=== PATIENT | female | born 1950 | race Caucasian/White ===

== ENCOUNTER 2019-03-12 08:42 | Inpatient (IN) | payer MEDICARE, OTHER ==
[~2019-03-12 08:42] MED LIST: Albuterol 0.083% 2.5 MG/3 ML Neb Soln NEB PRN; Lactated Ringers 1,000 ML IV SCH; Lidocaine 1%/Sod Bicarbonate in NS 8.4% 1 ML Syringe IDERM PRN; Sodium Chloride 0.9% 10 ML Syringe FLUSH PRN
[2019-03-12] MEDS ORDERED: Midazolam 1 MG/ML 2 ML SDV ONE ×4 (09:26→14:24)
[2019-03-12] MEDS ORDERED: Ondansetron 4 MG/2 ML SDV ONE (09:26)
[2019-03-12] MEDS ORDERED: Propofol 200 MG/20 ML SDV ONE (09:26)
[2019-03-12] MEDS ORDERED: fentaNYL 100 MCG/2 ML SDV ONE (09:26)
[2019-03-12] MEDS ORDERED: Morphine PF 1 MG/ML Amp ONE (09:27)
[2019-03-12] MEDS ORDERED: Phenylephrine 1% 10 MG/ML SDV ONE (09:27)
[2019-03-12] MEDS ORDERED: ceFAZolin 1 GM Vial ONE ×2 (09:28)
[2019-03-12] MEDS ORDERED: Scopolamine 1.5 MG Transdermal Patch TOP SCH (09:38)
--- NOTE | 2019-03-12 09:46 | PCM.PREANE ---
Preanesthetic Assessment - Anesthesia/Transfusion/Family Hx Anesthesia History: Prior Anesthesia Reaction Type of Anesthesia Reaction: Excessive Nausea/Vomiting Family History of Anesthesia Reaction: No Transfusion History: No Prior Transfusion(s) Intubation History: Unknown - Review of Systems General: No Symptoms Pulmonary: Shortness of Breath, Wheezing Cardiovascular: Palpitations, Lightheadedness Neurological: No Symptoms Other: Reports: Thyroid Problems - Physical Assessment NPO Status Date: 03/11/19 NPO Status Time: 22:30 O2 Sat by Pulse Oximetry: 98 Respiratory Rate: 16 Vital Signs: Last Vital Signs Temp 37.0 C 03/12/19 09:00 Pulse 75 03/12/19 09:00 Resp 16 03/12/19 09:00 BP 148/64 H 03/12/19 09:00 Pulse Ox 98 03/12/19 09:00 Height: 1.52 m Weight: 91.4 kg ASA Class: 3 Mental Status: Alert & Oriented x3 Airway Class: Mallampati = 2 Dentition: Reports: Normal Dentition, Walker(s) ROM/Head Extension: Full Lungs: Clear to Auscultation, Normal Respiratory Effort Cardiovascular: Regular Rate, Regular Rhythm, Murmurs - Lab Values: Laboratory Last Values POC Glucose 105 mg/dL (80-115) 03/12/19 09:19 MRSA (PCR) Negative 02/28/19 13:52 - Allergies Allergies/Adverse Reactions: Allergies Allergy/AdvReac Type Severity Reaction Status Date / Time ciprofloxacin [From Cipro] Allergy Rash Verified 03/10/19 10:32 ciprofloxacin HCl Allergy Rash Verified 03/10/19 10:32 [From Cipro] Iodinated Contrast- Oral and Allergy Hives Verified 03/10/19 10:32 IV Dye triamterene Allergy Hives Verified 03/10/19 10:33 codeine AdvReac Vomiting Verified 03/12/19 07:07 metronidazole [From Flagyl] AdvReac Other Verified 03/12/19 07:07 - Blood Blood Available: Yes Product(s) Available: PRBC - Anesthesia Plan Pre-Op Medication Ordered: Beta Kristi Beta Kristi: Carteolol - Acknowledgements Anesthesia Type Planned: Spinal Pt an Appropriate Candidate for the Planned Anesthesia: Yes Alternatives and Risks of Anesthesia Discussed w Pt/Guardian: Yes Pt/Guardian Understands and Agrees with Anesthesia Plan: Yes PreAnesthesia Questionnaire HEENT History: Reports: Impaired Vision Cardiovascular History: Reports: High Cholesterol, Hypertension Respiratory History: Reports: Asthma, Sleep Apnea, Other (See Below) Other Respiratory History: uses cpap Gastrointestinal History: Reports: Colon Polyp, Diverticulosis, Gastritis, GERD , Other (See Below) Other Gastrointestinal History: umbilical hernai, hiatal hernia Genitourinary History: Reports: Other (See Below) Other Genitourinary History: renal cell cancer, renal insufficiency, nephrectomy , kidney/ureter disorder [employer] History: Reports: None Neurological History: Reports: Neuropathy, Peripheral, Other (See Below) Other Neuro History: disc disorder, back surgery Psychiatric History: Reports: Depression Endocrine/Metabolic History: Reports: Vitamin D Deficiency Other Endocrine/Metabolic History: thyroid nodule Hematologic History: Reports: None Immunologic History: Reports: None Oncologic (Cancer) History: Reports: None Other Oncologic History: LEFT KIDNEY Dermatologic History: Reports: None - Past Surgical History Head Surgeries/Procedures: Reports: None HEENT Surgical History: Reports: None Respiratory Surgical History: Reports: None GI Surgical History: Reports: None Female Surgical History: Reports: None Male Surgical History: Reports: None Neurological Surgical History: Reports: None Musculoskeletal Surgical History: Reports: Arthroscopic Knee Other Musculoskeletal Surgeries/Procedures:: HERIATED DISK; BACK SURGERY Dermatological Surgical History: Reports: None - SUBSTANCE USE Smoking Status *Q: Never Smoker Second Hand Smoke Exposure: No Recreational Drug Use History: No - HOME MEDS Home Medications: Home Meds Albuterol [Ventolin HFA] 2 puff INH Q4H PRN 03/10/19 [History] Aspirin [Halfprin] 81 mg PO DAILY 03/10/19 [History] Aspirin/Caffeine [Anacin 400-32 mg Tablet] 1 tab PO Q8H PRN 03/10/19 [History] Diltiazem HCl [Cardizem Cd] 240 mg PO DAILY 03/10/19 [History] Lisinopril 5 mg PO DAILY 03/10/19 [History] Melatonin 10 mg PO BEDTIME PRN 03/10/19 [History] [place]-3/DHA/Epa/Fish Oil [[place] 3 500 Softgel] 1,000 mg PO DAILY 03/10/19 [ History] Rosuvastatin Calcium 10 mg PO DAILY 03/10/19 [History] Trolamine Salicylate/Aloe Vera [Aspercreme 10% Cream] 1 dose TOP TID 03/10/19 [ History] Cholecalciferol (Vitamin D3) [Vitamin D3] 1,000 unit PO DAILY 03/12/19 [History] - CURRENT (IN HOUSE) MEDS Current Meds: Current Medications Acetaminophen (Tylenol) 975 mg PO NOW [facility] Stop: 03/12/19 13:00 Last Admin: 03/12/19 09:24 Dose: 975 mg Albuterol (Proventil Neb Soln) 2.5 mg NEB ONETIME PRN PRN Reason: asthma Stop: 03/12/19 18:00 Bisacodyl (Dulcolax) 5 mg PO DAILY PRN PRN Reason: Constipation Morphine Sulfate 8 mg/Epinephrine HCl 0.3 mg/Cefuroxime Sodium 750 mg/Sodium Chloride 28.9 ml 0 mg .XX ONETIME ONE Stop: 03/12/19 11:01 Cyclobenzaprine HCl (Flexeril) 10 mg PO TID PRN PRN Reason: Spasms Docusate Sodium (Colace) 100 mg PO BID [facility] Famotidine (Pepcid) 20 mg PO Q12H [facility] Lactated Ringer's (Ringers, Lactated) 1,000 mls @ 125 mls/hr IV ASDIRECTED [facility] Stop: 03/12/19 23:00 Cefazolin Sodium/Dextrose 2 gm (/ Premix) 50 mls @ 100 mls/hr IV Q8H [facility] Stop: 03/12/19 23:44 Lidocaine/Sodium Bicarbonate (Buffered Lidocaine 1% In Ns 8.4%) 0.25 ml IDERM ONETIME PRN PRN Reason: Prior to IV Start Stop: 03/12/19 18:00 Magnesium Hydroxide (Milk Of Magnesia) 30 ml PO BID PRN PRN Reason: Constipation Morphine Sulfate (Morphine) 2 mg IVPUSH Q2H PRN PRN Reason: Breakthrough Pain Naloxone HCl (Narcan) 0.1 mg IVPUSH Q5M PRN PRN Reason: Oversedation Ondansetron HCl (Zofran) 4 mg IVPUSH Q6H PRN PRN Reason: Nausea/Vomiting Oxycodone HCl (Oxycontin) 10 mg PO ONETIME [facility] Stop: 03/12/19 13:00 Last Admin: 03/12/19 09:23 Dose: 10 mg Oxycodone/Acetaminophen (Percocet 325-5 Mg) 1 - 2 tab PO Q4H PRN PRN Reason: Pain Pregabalin (Lyrica) 50 mg PO ONETIME [facility] Stop: 03/12/19 13:00 Last Admin: 03/12/19 09:23 Dose: 50 mg Rivaroxaban (Xarelto) 10 mg PO DAILY [facility] Scopolamine (Transderm-Scop) 1.5 mg TOP ONETIME [facility] Senna (Senna) 8.6 mg PO BID PRN PRN Reason: Constipation Sodium Chloride (Saline Flush) 10 ml FLUSH ASDIRECTED PRN PRN Reason: Keep Vein Open Stop: 03/12/19 18:00 Discontinued Medications Cefazolin Sodium (Ancef) Confirm Administered Dose 1 gm .ROUTE .STK-MED ONE Stop: 03/12/19 09:29 Cefazolin Sodium (Ancef) Confirm Administered Dose 1 gm .ROUTE .STK-MED ONE Stop: 03/12/19 09:29 Fentanyl (Sublimaze) Confirm Administered Dose 100 mcg .ROUTE .STK-MED ONE Stop: 03/12/19 09:27 Midazolam HCl (Versed 1 Mg/Ml) Confirm Administered Dose 2 mg .ROUTE .STK-MED ONE Stop: 03/12/19 09:27 Morphine Sulfate (Duramorph Pf) Confirm Administered Dose 1 mg .ROUTE .STK-MED ONE Stop: 03/12/19 09:28 Ondansetron HCl (Zofran) Confirm Administered Dose 4 mg .ROUTE .STK-MED ONE Stop: 03/12/19 09:27 Phenylephrine HCl (Price-Synephrine) Confirm Administered Dose 10 mg .ROUTE .STK- MED ONE Stop: 03/12/19 09:28 Propofol (Diprivan 20 Ml) Confirm Administered Dose 200 mg .ROUTE .STK-MED ONE Stop: 03/12/19 09:27
[2019-03-12] MEDS ORDERED: oxyCODONE ER 10 MG TAB.ER PO SCH (10:00)
[2019-03-12] MEDS ORDERED: Pregabalin 25 MG Cap PO SCH (10:00)
[2019-03-12] MEDS ORDERED: Acetaminophen 325 MG Tab PO SCH (10:00)
[2019-03-12] MEDS ORDERED: Ondansetron 4 MG/2 ML SDV IVPUSH PRN (11:00)
[2019-03-12] MEDS ORDERED: Bisacodyl 5 MG Tab PO PRN (11:00)
[2019-03-12] MEDS ORDERED: Morphine 2 MG/ML Syringe IVPUSH PRN (11:00)
[2019-03-12] MEDS ORDERED: Naloxone 0.4 MG/ML SDV IVPUSH PRN (11:00)
[2019-03-12] MEDS ORDERED: Magnesium Hydroxide 400 MG/5 ML Susp 30 ML Cup PO PRN (11:00)
[2019-03-12] MEDS ORDERED: Sennosides 8.6 MG Tab PO PRN (11:00)
[2019-03-12] MEDS ORDERED: Iodine/Sodium Iodide 2% Tincture 30 ML Bottle ONE (11:30)
[2019-03-12] MEDS ORDERED: ePHEDrine/Normal Saline 25 MG/5 ML Syringe ONE (13:09)
[2019-03-12] MEDS: ceFAZolin 1 GM Vial ONE ×3 (13:31→13:59)
[2019-03-12] MEDS: Vancomycin 1 GM SDV ONE ×3 (13:32→14:05)
[2019-03-12] MEDS: Bupivacaine 0.25% 30 ML SDV ONE ×3 (13:32→14:03)
[2019-03-12] MEDS: Morphine 8 MG, EPINEPHrine 0.3 MG, Cefuroxime 750 MG, Sodium Chloride 0.9% 28.9 ML ONE ×16 (13:34→17:19)
[2019-03-12] MEDS ORDERED: Lactated Ringers 1,000 ML ONE (14:03)
--- NOTE | 2019-03-12 14:55 | PCM.POSTAN ---
POST ANESTHESIA ASSESSMENT - MENTAL STATUS Mental Status: Alert - RESPIRATORY Respiratory Status: Respiratory Rate WNL, Airway Patent, O2 Saturation Stable - CARDIOVASCULAR CV Status: Pulse Rate WNL, Blood Pressure Stable - GASTROINTESTINAL GI Status: No Symptoms - POST OP HYDRATION Hydration Status: Adequate & Stable
--- NOTE | 2019-03-12 15:16 | CR ---
Pelvis and right hip: AP view of the pelvis was obtained as well as lateral view of the right hip. Comparison: No prior pelvis or hip exam is available. Recently placed right hip prosthesis is seen. Components are aligned. Underlying bony structures are intact. Osteopenia is seen. No additional abnormality is noted other than mild degenerative change within the left hip. Impression: 1. Recently placed right hip prosthesis. Other incidental findings. Diagnostic code #2
[2019-03-12] MEDS ORDERED: Albuterol 6.7 GM Inhaler INH PRN (15:40)
--- NOTE | 2019-03-12 15:47 | PCM.CONS ---
H&P History of Present Illness - General Date of Service: 03/12/19 Admit Problem/Dx: Admission Diagnosis/Problem Admission Diagnosis/Problem Osteoarthritis of hip - History of Present Illness Initial Comments - Free Text/Narative: 68 yo WF with dyslipidemia, DM, HTN underwent right hip surgery. Hospitalist service was asked to assist in medical management. Right Hip Pain Score (Numeric/FACES): 2 - Related Data Allergies/Adverse Reactions: Allergies Allergy/AdvReac Type Severity Reaction Status Date / Time ciprofloxacin [From Cipro] Allergy Rash Verified 03/12/19 15:41 ciprofloxacin HCl Allergy Rash Verified 03/12/19 15:41 [From Cipro] Iodinated Contrast- Oral and Allergy Hives Verified 03/12/19 15:41 IV Dye triamterene Allergy Hives Verified 03/12/19 15:41 codeine AdvReac Vomiting Verified 03/12/19 15:41 metronidazole [From Flagyl] AdvReac Other Verified 03/12/19 15:41 Home Medications: Home Meds Albuterol [Ventolin HFA] 2 puff INH Q4H PRN 03/10/19 [History] Aspirin [Halfprin] 81 mg PO DAILY 03/10/19 [History] Aspirin/Caffeine [Anacin 400-32 mg Tablet] 1 tab PO Q8H PRN 03/10/19 [History] Diltiazem HCl [Cardizem Cd] 240 mg PO DAILY 03/10/19 [History] Lisinopril 5 mg PO DAILY 03/10/19 [History] Melatonin 10 mg PO BEDTIME PRN 03/10/19 [History] [place]-3/DHA/Epa/Fish Oil [[place] 3 500 Softgel] 1,000 mg PO DAILY 03/10/19 [ History] Rosuvastatin Calcium 10 mg PO DAILY 03/10/19 [History] Trolamine Salicylate/Aloe Vera [Aspercreme 10% Cream] 1 dose TOP TID 03/10/19 [ History] Cholecalciferol (Vitamin D3) [Vitamin D3] 1,000 unit PO DAILY 03/12/19 [History] Past Medical History HEENT History: Reports: Impaired Vision Cardiovascular History: Reports: High Cholesterol, Hypertension Respiratory History: Reports: Asthma, Sleep Apnea, Other (See Below) Other Respiratory History: uses cpap Gastrointestinal History: Reports: Colon Polyp, Diverticulosis, Gastritis, GERD , Other (See Below) Other Gastrointestinal History: umbilical hernai, hiatal hernia Genitourinary History: Reports: Other (See Below) Other Genitourinary History: renal cell cancer, renal insufficiency, nephrectomy , kidney/ureter disorder [employer] History: Reports: None Neurological History: Reports: Neuropathy, Peripheral, Other (See Below) Other Neuro History: disc disorder, back surgery Psychiatric History: Reports: Depression Endocrine/Metabolic History: Reports: Vitamin D Deficiency Other Endocrine/Metabolic History: thyroid nodule Hematologic History: Reports: None Immunologic History: Reports: None Oncologic (Cancer) History: Reports: None Other Oncologic History: LEFT KIDNEY Dermatologic History: Reports: None - Past Surgical History Head Surgeries/Procedures: Reports: None HEENT Surgical History: Reports: None Respiratory Surgical History: Reports: None GI Surgical History: Reports: None Female Surgical History: Reports: None Male Surgical History: Reports: None Neurological Surgical History: Reports: None Musculoskeletal Surgical History: Reports: Arthroscopic Knee Other Musculoskeletal Surgeries/Procedures:: HERIATED DISK; BACK SURGERY Dermatological Surgical History: Reports: None Social & Family History - Tobacco Use Smoking Status *Q: Never Smoker Second Hand Smoke Exposure: No - Caffeine Use Caffeine Use: Reports: Coffee Caffeine Use Comment: de caff coffee - Recreational Drug Use Recreational Drug Use: No H&P Review of Systems - Review of Systems: Review Of Systems: See Below General: Denies: Fever, Chills HEENT: Denies: Hearing Changes, Vertigo, Visual Changes Pulmonary: Denies: Shortness of Breath, Wheezing Cardiovascular: Denies: Chest Pain, Palpitations, Syncope Gastrointestinal: Denies: Abdominal Pain, Nausea, Vomiting Genitourinary: Denies: Dysuria Musculoskeletal: Reports: Leg Pain Skin: Denies: Cyanosis, Jaundice Psychiatric: Denies: Depression, Suicidal Ideation Neurological: Denies: Seizure, Syncope Hematologic/Lymphatic: Denies: Easy Bleeding, Easy Bruising Exam - Exam Exam: See Below - Vital Signs Vital Signs: Last Vital Signs Temp 96.8 F 03/12/19 15:15 Pulse 75 03/12/19 09:00 Resp 16 03/12/19 15:20 BP 111/46 L 03/12/19 15:20 Pulse Ox 94 L 03/12/19 15:20 Weight: 201 lb 8.04 oz - Exam Quality Assessment: Supplemental Oxygen General: Oriented, Lethargic HEENT: Conjunctiva Clear, Pupils Equal Neck: Supple, Trachea Midline Lungs: Clear to Auscultation, Normal Respiratory Effort Cardiovascular: Regular Rate, Regular Rhythm, Normal S1, Normal S2 GI/Abdominal Exam: Soft, Non-Tender, No Organomegaly, No Distention Extremities: Non-Tender, No Pedal Edema Peripheral Pulses: 2+: Posterior Tibial (L), Posterior Tibial (R) - Patient Data Lab Results Last 24 hrs: Laboratory Results - last 24 hr 03/12/19 03/12/19 Range/Units 09:19 09:20 POC Glucose 105 (80-115) mg/dL Blood Type A POSITIVE Gel Antibody Screen Negative Consult PN Assessment/Plan Procedures: Procedures ASSAY OF PROTEIN URINE (11/03/16) ASSAY OF URINE CREATININE (11/03/16) COLONOSCOPY AND BIOPSY (06/02/15) COMPLETE CBC W/AUTO DIFF WBC (08/04/17) CULTURE SCREEN ONLY (06/25/17) EGD BIOPSY SINGLE/MULTIPLE (06/02/15) GLYCOSYLATED HEMOGLOBIN TEST (08/04/17) METABOLIC PANEL TOTAL CA (05/13/17) POLYSOM 6/>YRS CPAP 4/> PARM (05/19/17) RENAL FUNCTION PANEL (08/04/17) ROUTINE VENIPUNCTURE (08/04/17) TISSUE EXAM BY PATHOLOGIST (06/02/15) URINALYSIS AUTO W/SCOPE (05/05/17) URINE CULTURE/COLONY COUNT (05/13/17) (1) Diabetes mellitus SNOMED Code(s): 77092453 Code(s): E11.9 - TYPE 2 DIABETES MELLITUS WITHOUT COMPLICATIONS Current Visit: Yes Qualifiers: Diabetes mellitus type: type 2 Diabetes mellitus residential insulin use: without residential use Diabetes mellitus complication status: without complication Qualified Code(s): E11.9 - Type 2 diabetes mellitus without complications (2) Essential hypertension SNOMED Code(s): 86833415 Code(s): I10 - ESSENTIAL (PRIMARY) HYPERTENSION Priority: High Current Visit: Yes (3) Dyslipidemia SNOMED Code(s): 721199184 Code(s): E78.5 - HYPERLIPIDEMIA, UNSPECIFIED Current Visit: Yes Problem List Initiated/Reviewed/Updated: Yes My Orders Last 24 Hours: My Active Orders 03/12/19 15:40 Albuterol 2 puff INH Q4H PRN 03/13/19 05:00 MAGNESIUM [CHEM] AM PHOSPHORUS [CHEM] AM 03/13/19 09:00 Lisinopril [Prinivil] 5 mg PO DAILY Plan: 1. pain control, will correlate with ortho team. 2. DM - HbA1C, start SSI. 3. continue ACEi, CCB. 4. continue home rosuvastatin. 5. DVTP
[2019-03-12] MEDS: ceFAZolin 2 GM in Premix Bag 1 BAG IV SCH (16:54)
[2019-03-12] MEDS: Famotidine 20 MG Tab PO SCH (21:09)
[2019-03-12] MEDS: Acetaminophen/oxyCODONE 325-5 MG Tab PO PRN (21:09)
[2019-03-12] MEDS: Docusate Sodium 100 MG Cap PO SCH (21:09)
[2019-03-13] MEDS: ceFAZolin 2 GM in Premix Bag 1 BAG IV SCH ×2 (01:55→08:34)
[2019-03-13] MEDS: Acetaminophen/oxyCODONE 325-5 MG Tab PO PRN ×3 (01:55→10:31)
[2019-03-13] MEDS: Cyclobenzaprine 10 MG Tab PO PRN ×2 (05:53→13:16)
--- NOTE | 2019-03-13 07:47 | PCM.SURGPN ---
- General Info Date of Service: 03/13/19 POD#: 1 Functional Status: Reports: Pain Controlled, Tolerating Diet, Incentive Spirometry, Other (The pt states she was able to rest comfortably this morning and pain is controlled.) - Patient Data Vitals - Most Recent: Last Vital Signs Temp 98.1 F 03/13/19 06:01 Pulse 58 L 03/13/19 06:01 Resp 18 03/13/19 06:01 BP 98/58 L 03/13/19 06:01 Pulse Ox 98 03/13/19 06:01 Weight - Most Recent: 206 lb 4 oz I&O - Last 24 Hours: Intake & Output 03/12/19 03/13/19 03/13/19 22:59 06:59 14:59 Intake Total 980 850 Output Total 450 Balance 980 400 Lab Results Last 24 Hrs: Laboratory Results - last 24 hr 03/12/19 03/12/19 03/13/19 Range/Units 09:19 09:20 05:40 WBC 8.47 (3.98-10.04) K/mm3 RBC 4.12 (3.98-5.22) M/mm3 Hgb 11.9 D (11.2-15.7) gm/L Hct 37.6 (34.1-44.9) % MCV 91.3 (79.4-94.8) fl MCH 28.9 (25.6-32.2) pg MCHC 31.6 L (32.2-35.5) g/dl RDW Std Deviation 45.2 (36.4-46.3) fL Plt Count 188 (182-369) K/mm3 MPV 10.3 (9.4-12.3) fl Sodium (136-145) mEq/L Potassium (3.5-5.1) mEq/L Chloride (98-107) mEq/L Carbon Dioxide (21-32) mEq/L Anion Gap (5-15) BUN (7-18) mg/dL Creatinine (0.55-1.02) mg/dL Est Cr Clr Drug Dosing mL/min Estimated GFR (MDRD) (>60) mL/min BUN/Creatinine Ratio (14-18) Glucose (80-115) mg/dL POC Glucose 105 (80-115) mg/dL Calcium (8.5-10.1) mg/dL Phosphorus (2.6-4.7) mg/dL Magnesium (1.8-2.4) mg/dl Total Bilirubin (0.2-1.0) mg/dL AST (15-37) U/L ALT (14-59) U/L Alkaline Phosphatase (46-116) U/L Total Protein (6.4-8.2) g/dl Albumin (3.4-5.0) g/dl Globulin gm/dL Albumin/Globulin Ratio (1-2) Blood Type A POSITIVE Gel Antibody Screen Negative 03/13/19 03/13/19 Range/Units 05:40 05:40 WBC (3.98-10.04) K/mm3 RBC (3.98-5.22) M/mm3 Hgb (11.2-15.7) gm/L Hct (34.1-44.9) % MCV (79.4-94.8) fl MCH (25.6-32.2) pg MCHC (32.2-35.5) g/dl RDW Std Deviation (36.4-46.3) fL Plt Count (182-369) K/mm3 MPV (9.4-12.3) fl Sodium 138 (136-145) mEq/L Potassium 4.5 (3.5-5.1) mEq/L Chloride 105 (98-107) mEq/L Carbon Dioxide 27 (21-32) mEq/L Anion Gap 10.5 (5-15) BUN 18 (7-18) mg/dL Creatinine 1.0 (0.55-1.02) mg/dL Est Cr Clr Drug Dosing 37.60 mL/min Estimated GFR (MDRD) 55 (>60) mL/min BUN/Creatinine Ratio 18.0 (14-18) Glucose 111 (80-115) mg/dL POC Glucose (80-115) mg/dL Calcium 8.5 (8.5-10.1) mg/dL Phosphorus 4.4 (2.6-4.7) mg/dL Magnesium 1.8 (1.8-2.4) mg/dl Total Bilirubin 0.3 (0.2-1.0) mg/dL AST 70 H (15-37) U/L ALT 56 (14-59) U/L Alkaline Phosphatase 78 (46-116) U/L Total Protein 5.9 L (6.4-8.2) g/dl Albumin 2.7 L (3.4-5.0) g/dl Globulin 3.2 gm/dL Albumin/Globulin Ratio 0.8 L (1-2) Blood Type Gel Antibody Screen Med Orders - Current: Current Medications Albuterol (Proventil Hfa) 0 gm INH Q4H PRN PRN Reason: Shortness of Breath Bisacodyl (Dulcolax) 5 mg PO DAILY PRN PRN Reason: Constipation Cholecalciferol (Vitamin D3) 1,000 units PO DAILY [facility] Cyclobenzaprine HCl (Flexeril) 10 mg PO TID PRN PRN Reason: Spasms Last Admin: 03/13/19 05:53 Dose: 10 mg Docusate Sodium (Colace) 100 mg PO BID [facility] Last Admin: 03/12/19 21:09 Dose: 100 mg Famotidine (Pepcid) 20 mg PO Q12H [facility] Last Admin: 03/12/19 21:09 Dose: Not Given Cefazolin Sodium/Dextrose 2 gm (/ Premix) 50 mls @ 100 mls/hr IV Q8H [facility] Stop: 03/13/19 09:59 Last Admin: 03/13/19 01:55 Dose: 100 mls/hr Lisinopril (Prinivil) 5 mg PO DAILY [facility] Miscellaneous Information (Remove Patch) 0 ea TRDERM ONETIME ONE Stop: 03/15/19 10:01 Morphine Sulfate (Morphine) 2 mg IVPUSH Q2H PRN PRN Reason: Breakthrough Pain Naloxone HCl (Narcan) 0.1 mg IVPUSH Q5M PRN PRN Reason: Oversedation Ondansetron HCl (Zofran) 4 mg IVPUSH Q6H PRN PRN Reason: Nausea/Vomiting Oxycodone/Acetaminophen (Percocet 325-5 Mg) 1 - 2 tab PO Q4H PRN PRN Reason: Pain Last Admin: 03/13/19 05:51 Dose: 2 tab Rivaroxaban (Xarelto) 10 mg PO DAILY [facility] Senna (Senna) 8.6 mg PO BID PRN PRN Reason: Constipation Discontinued Medications Acetaminophen (Tylenol) 975 mg PO NOW [facility] Stop: 03/12/19 13:00 Last Admin: 03/12/19 09:24 Dose: 975 mg Albuterol (Proventil Neb Soln) 2.5 mg NEB ONETIME PRN PRN Reason: asthma Stop: 03/12/19 18:00 Bupivacaine HCl (Marcaine 0.25%) Confirm Administered Dose 30 ml .ROUTE .STK- MED ONE Stop: 03/12/19 11:31 Last Admin: 03/12/19 14:03 Dose: 30 ml Cefazolin Sodium (Ancef) Confirm Administered Dose 1 gm .ROUTE .STK-MED ONE Stop: 03/12/19 09:29 Cefazolin Sodium (Ancef) Confirm Administered Dose 1 gm .ROUTE .STK-MED ONE Stop: 03/12/19 09:29 Cefazolin Sodium (Ancef) Confirm Administered Dose 2 gm .ROUTE .STK-MED ONE Stop: 03/12/19 11:31 Last Admin: 03/12/19 13:59 Dose: 2 gm Morphine Sulfate 8 mg/Epinephrine HCl 0.3 mg/Cefuroxime Sodium 750 mg/Sodium Chloride 28.9 ml 0 mg .XX ONETIME ONE Stop: 03/12/19 11:01 Last Admin: 03/12/19 17:19 Dose: Not Given Ephedrine Sulfate (Ephedrine In Ns) Confirm Administered Dose 25 mg .ROUTE .STK- MED ONE Stop: 03/12/19 13:10 Fentanyl (Sublimaze) Confirm Administered Dose 100 mcg .ROUTE .STK-MED ONE Stop: 03/12/19 09:27 Lactated Ringer's (Ringers, Lactated) 1,000 mls @ 125 mls/hr IV ASDIRECTED [facility] Stop: 03/12/19 23:00 Last Admin: 03/12/19 09:19 Dose: 125 mls/hr Lactated Ringer's (Ringers, Lactated) Confirm Administered Dose 1,000 mls @ as directed .ROUTE .STK-MED ONE Stop: 03/12/19 14:04 Iodine (Iodine 2% Mild Tincture) Confirm Administered Dose 30 ml .ROUTE .STK- MED ONE Stop: 03/12/19 11:31 Lidocaine/Sodium Bicarbonate (Buffered Lidocaine 1% In Ns 8.4%) 0.25 ml IDERM ONETIME PRN PRN Reason: Prior to IV Start Stop: 03/12/19 18:00 Magnesium Hydroxide (Milk Of Magnesia) 30 ml PO BID PRN PRN Reason: Constipation Midazolam HCl (Versed 1 Mg/Ml) Confirm Administered Dose 2 mg .ROUTE .STK-MED ONE Stop: 03/12/19 09:27 Midazolam HCl (Versed 1 Mg/Ml) Confirm Administered Dose 2 mg .ROUTE .STK-MED ONE Stop: 03/12/19 11:22 Midazolam HCl (Versed 1 Mg/Ml) Confirm Administered Dose 2 mg .ROUTE .STK-MED ONE Stop: 03/12/19 12:59 Midazolam HCl (Versed 1 Mg/Ml) Confirm Administered Dose 2 mg .ROUTE .STK-MED ONE Stop: 03/12/19 14:25 Morphine Sulfate (Duramorph Pf) Confirm Administered Dose 1 mg .ROUTE .ST-MED ONE Stop: 03/12/19 09:28 Ondansetron HCl (Zofran) Confirm Administered Dose 4 mg .ROUTE .ST-MED ONE Stop: 03/12/19 09:27 Oxycodone HCl (Oxycontin) 10 mg PO ONETIME [facility] Stop: 03/12/19 13:00 Last Admin: 03/12/19 09:23 Dose: 10 mg Phenylephrine HCl (Price-Synephrine) Confirm Administered Dose 10 mg .ROUTE .ST- MED ONE Stop: 03/12/19 09:28 Pregabalin (Lyrica) 50 mg PO ONETIME [facility] Stop: 03/12/19 13:00 Last Admin: 03/12/19 09:23 Dose: 50 mg Propofol (Diprivan 20 Ml) Confirm Administered Dose 200 mg .ROUTE .ST-MED ONE Stop: 03/12/19 09:27 Scopolamine (Transderm-Scop) 1.5 mg TOP ONETIME [facility] Stop: 03/12/19 12:00 Last Admin: 03/12/19 09:50 Dose: 1.5 mg Sodium Chloride (Saline Flush) 10 ml FLUSH ASDIRECTED PRN PRN Reason: Keep Vein Open Stop: 03/12/19 18:00 Tranexamic Acid (Cyklokapron) Confirm Administered Dose 1,000 mg .ROUTE .STK- MED ONE Stop: 03/12/19 11:31 Last Admin: 03/12/19 14:04 Dose: 1,000 mg Vancomycin HCl (Vancomycin) Confirm Administered Dose 1 gm .ROUTE .STK-MED ONE Stop: 03/12/19 11:31 Last Admin: 03/12/19 14:05 Dose: 1 gm - Exam Wound/Incisions: Dressing Dry and Intact General: Alert, Cooperative, No Acute Distress Lungs: Normal Respiratory Effort Extremities: Other (Right thigh soft. NVS intact for BLE. Irene's negative for BLE.) - Problem List Review Problem List Initiated/Reviewed/Updated: Yes - My Orders Last 24 Hours: Active Orders 24 hr Category Date Time Status Patient Status [ADT] Routine ADT 03/12/19 07:15 Active Ambulate [RC] BID Care 03/12/19 07:15 Active Antiembolic Devices [RC] BID Care 03/12/19 07:16 Active Bradycardia-Neuroaxis [employer] [RC] ROUTINE Care 03/12/19 14:55 Active Hypertension-Neuroaxis [employer] [RC] ROUTINE Care 03/12/19 14:55 Active Hypotension-Neuroaxis [employer] [RC] ROUTINE Care 03/12/19 14:55 Active May Shower [RC] ASDIRECTED Care 03/12/19 07:15 Active Notify Provider Consults [RC] ASDIRECTED Care 03/12/19 07:18 Active Oxygen Therapy [RC] PRN Care 03/12/19 07:15 Active RT Incentive Spirometry [RC] Q1HWA Care 03/12/19 07:14 Active Ready for Discharge [RC] PER UNIT ROUTINE Care 03/13/19 07:41 Ordered Up to Chair [RC] BID Care 03/12/19 07:15 Active Vital Signs [RC] Q4HR Care 03/12/19 07:15 Active Consult to Physician [CONS] Routine Cons 03/12/19 07:15 Active OT Evaluation and Treatment [CONS] Routine Cons 03/12/19 07:14 Active PT Evaluation and Treatment [CONS] Routine Cons 03/12/19 07:14 Active Regular Diet [DIET] Diet 03/12/19 Dinner Active GLYCOSYLATED HEMOGLOBIN,HGBA1C [CHEM] AM Lab 03/13/19 05:40 Received Acetaminophen/oxyCODONE [Percocet 325-5 MG] Med 03/12/19 11:00 Active 1 - 2 tab PO Q4H PRN Albuterol [Proventil HFA] Med 03/12/19 15:40 Active 0 gm INH Q4H PRN Bisacodyl [Dulcolax] Med 03/12/19 11:00 Active 5 mg PO DAILY PRN Cholecalciferol (Vitamin D3) [Vitamin D3] Med 03/13/19 09:00 Active 1,000 units PO DAILY Cyclobenzaprine [Flexeril] Med 03/12/19 11:00 Active 10 mg PO TID PRN Docusate Sodium [Colace] Med 03/12/19 21:00 Active 100 mg PO BID Famotidine [Pepcid] Med 03/12/19 21:00 Active 20 mg PO Q12H Lisinopril [Prinivil] Med 03/13/19 09:00 Active 5 mg PO DAILY Morphine Med 03/12/19 11:00 Active 2 mg IVPUSH Q2H PRN Naloxone [Narcan] Med 03/12/19 11:00 Active 0.1 mg IVPUSH Q5M PRN Ondansetron [Zofran] Med 03/12/19 11:00 Active 4 mg IVPUSH Q6H PRN Remove Patch Med 03/15/19 10:00 Once 0 ea TRDERM ONETIME ONE Rivaroxaban [Xarelto] Med 03/13/19 09:00 Active 10 mg PO DAILY Sennosides [Senna] Med 03/12/19 11:00 Active 8.6 mg PO BID PRN ceFAZolin [Ancef] 2 gm Med 03/12/19 17:30 Active Premix Bag 1 bag IV Q8H Antiembolic Hose [OM.PC] Per Unit Routine Oth 03/12/19 07:17 Ordered Hip Precautions Posterior [OM.PC] Routine Oth 03/12/19 07:14 Ordered Ice Therapy [OM.PC] Per Unit Routine Oth 03/12/19 07:16 Ordered Pulse Oximetry Continuous Monitoring [OM.PC] Routine Oth 03/12/19 17:20 Active Sequential Compression Device [OM.PC] Per Unit Routine Oth 03/12/19 07:14 Ordered Resuscitation Status Routine Resus Stat 03/12/19 07:15 Ordered Medication Orders Albuterol (Proventil Hfa) 0 gm INH Q4H PRN PRN Reason: Shortness of Breath Bisacodyl (Dulcolax) 5 mg PO DAILY PRN PRN Reason: Constipation Cholecalciferol (Vitamin D3) 1,000 units PO DAILY [facility] Cyclobenzaprine HCl (Flexeril) 10 mg PO TID PRN PRN Reason: Spasms Last Admin: 03/13/19 05:53 Dose: 10 mg Docusate Sodium (Colace) 100 mg PO BID [facility] Last Admin: 03/12/19 21:09 Dose: 100 mg Famotidine (Pepcid) 20 mg PO Q12H [facility] Last Admin: 03/12/19 21:09 Dose: Not Given Cefazolin Sodium/Dextrose 2 gm (/ Premix) 50 mls @ 100 mls/hr IV Q8H [facility] Stop: 03/13/19 09:59 Last Admin: 03/13/19 01:55 Dose: 100 mls/hr Infusion: 03/12/19 17:24 Dose: 100 mls/hr Admin: 03/12/19 16:54 Dose: 100 mls/hr Lisinopril (Prinivil) 5 mg PO DAILY [facility] Miscellaneous Information (Remove Patch) 0 ea TRDERM ONETIME ONE Stop: 03/15/19 10:01 Morphine Sulfate (Morphine) 2 mg IVPUSH Q2H PRN PRN Reason: Breakthrough Pain Naloxone HCl (Narcan) 0.1 mg IVPUSH Q5M PRN PRN Reason: Oversedation Ondansetron HCl (Zofran) 4 mg IVPUSH Q6H PRN PRN Reason: Nausea/Vomiting Oxycodone/Acetaminophen (Percocet 325-5 Mg) 1 - 2 tab PO Q4H PRN PRN Reason: Pain Last Admin: 03/13/19 05:51 Dose: 2 tab Admin: 03/13/19 01:55 Dose: 2 tab Admin: 03/12/19 21:09 Dose: 2 tab Rivaroxaban (Xarelto) 10 mg PO DAILY [facility] Senna (Senna) 8.6 mg PO BID PRN PRN Reason: Constipation - Assessment Assessment (Free Text/Narrative):: POD#1 - right RENATE - Plan Plan (Free Text/Narrative):: 1. Will initiate Xarelto today for VTE prophylaxis. Hx gastritis, GERD and pt reports mother with hx VTE. 2. Hgb 11.9. GFR 55. 3. Discharge to home today if inpt therapy goals met and if cleared by Hospitalist service. 4. RENATE precautions. Outpatient therapy. 5. Hospitalist service input appreciated re: medical management. SSI initiated. The pt's case was discussed with Dr. Chen.
--- NOTE | 2019-03-13 08:17 | PCM48HPAN ---
Post Anesthesia Note - EVALUATION WITHIN 48HRS OF ANESTHETIC Vital Signs in Normal Range: Yes Patient Participated in Evaluation: Yes Respiratory Function Stable: Yes Airway Patent: Yes Cardiovascular Function Stable: Yes Hydration Status Stable: Yes Pain Control Satisfactory: Yes Nausea and Vomiting Control Satisfactory: Yes Mental Status Recovered: Yes Pulse Rate: 58 Resp Rate: 18 Temperature: 36.7 C Blood Pressure: 98/58 - COMMENTS/OBSERVATIONS Free Text/Narrative:: no anesthesia complications noted
[2019-03-13] MEDS: Famotidine 20 MG Tab PO SCH (08:30)
[2019-03-13] MEDS: Docusate Sodium 100 MG Cap PO SCH (08:31)
[2019-03-13] MEDS ORDERED: Cholecalciferol (Vitamin D3) 1,000 Unit Tab PO SCH (09:00)
[2019-03-13] MEDS ORDERED: Rivaroxaban 10 MG Tab PO SCH (09:00)
[2019-03-13] MEDS ORDERED: Lisinopril 5 MG Tab PO SCH (09:00)
[2019-03-13 09:31] LABS: HEMOGLOBIN A1C 5.9 % (4.50-6.20)
[2019-03-13 12:51] VITALS: BP 98/54
--- NOTE | 2019-03-14 08:41 | PCM.DCSUM1 ---
Discharge Summary - Hospital Course Brief History: Astrid is a 68 yo female who underwent right RENATE with Dr. Chen on 03-12-2019. The procedure was completed under spinal anesthesia with MAC. The pt tolerated the procedure well and was admitted to the Medical-Surgical Unit. The pt received Ancef jonathan-operatively. She participated in P.T. and O.T. and progressed well. She was allowed to WBAT and used a FWW for mobility. The pt's surgical wound was dressed with a Mepilex dressing and remained clean and dry. On POD#1, the pt was started on Xarelto 10mg PO daily for VTE prophylaxis. The pt used TEDs and SCDs also. On POD#1, the pt's hemoglobin was 11.9. Medical management was provided by the Hospitalist service and the pt 's hospital course was uneventful. On POD#1, the pt was deemed appropriate for discharge to home. - Discharge Data Discharge Date: 03/13/19 Discharge Disposition: Home, Self-Care 01 Condition: Good - Patient Summary/Data Consults: Consultations 03/12/19 07:14 OT Evaluation and Treatment [CONS] Routine PT Evaluation and Treatment [CONS] Routine 03/12/19 07:15 Consult to Physician [CONS] Routine - Patient Instructions Diet: Usual Diet as Tolerated Activity: Apply Ice, As Tolerated, Elevate Extremity, Full Weight Bearing Activity, Other: RENATE precautions Driving: Do Not Drive Showering/Bathing: May Shower Wound/Incision Care: Keep Operative Site/Wound Site Clean and Dry, Do NOT Change Dressing Notify Provider of: Fever, Increased Pain, Swelling and Redness, Drainage, Nausea and/or Vomiting Other/Special Instructions: Please get up and moving around EVERY HOUR while awake. Take a short walk in your home every hour while awake. This helps to prevent blood clots. Have help with mobility as needed. Please take the Xarelto blood thinner medication daily as directed. This also helps to prevent blood clots. Please wear the ERMA hose during the day and you may remove them at night. Please schedule for P.T. Complete the P.T. exercises and stretches that were instructed in the Hospital. Follow the total hip precautions that were instructed during your Hospital stay. Please use the pain medication as needed. The medication may cause drowsiness and/or constipation. You could use a stool softener like docusate sodium or Colace 100mg twice daily and/or a laxative like Miralax daily for constipation. Contact your primary care provider for further instructions if you are constipated. Discontinue use of the pain medication as soon as able. Please do not use other medications that may cause drowsiness (other pain medications, anxiety pills, sleeping pills, allergy medications that cause drowsiness) while using the pain medication. Please do not use alcohol while using the pain medication. Use the incentive spirometer often. Please place ice to the surgical site often. Place a towel between your skin and the blue pad. Please elevate the limb to decrease swelling. Keep the dressing in place until follow-up. Please notify the Clinic if the dressing is saturated or rolls. Increase protein intake in your diet as this helps with healing. If your blood sugars have been abnormal in the past, please closely monitor your blood sugars and notify your primary care provider of your values. Elevated blood sugars increase the risk of infection. Please call [phone] with questions or concerns. - Discharge Plan *PRESCRIPTION DRUG MONITORING PROGRAM REVIEWED*: No *COPY OF PRESCRIPTION DRUG MONITORING REPORT IN PATIENT CAROLYN: No Prescriptions/Med Rec: Acetaminophen/oxyCODONE [Percocet 325-5 MG] 1 - 2 tab PO Q6H PRN #60 tablet PRN Reason: Pain Cyclobenzaprine [Flexeril] 10 mg PO BID PRN #30 tablet PRN Reason: Spasms Rivaroxaban [Xarelto] 10 mg PO DAILY #35 tablet Home Medications: Home Meds Albuterol [Ventolin HFA] 2 puff INH Q4H PRN 03/10/19 [History] Diltiazem HCl [Cardizem Cd] 240 mg PO DAILY 03/10/19 [History] Lisinopril 5 mg PO DAILY 03/10/19 [History] Melatonin 10 mg PO BEDTIME PRN 03/10/19 [History] Rosuvastatin Calcium 10 mg PO DAILY 03/10/19 [History] Trolamine Salicylate/Aloe Vera [Aspercreme 10% Cream] 1 dose TOP TID 03/10/19 [ History] Acetaminophen/oxyCODONE [Percocet 325-5 MG] 1 - 2 tab PO Q6H PRN #60 tablet 04/25 [Rx] Bisacodyl [Dulcolax] 5 mg PO DAILY PRN tablet 03/12/19 [Rx] Cholecalciferol (Vitamin D3) [Vitamin D3] 1,000 unit PO DAILY 03/12/19 [History] Cyclobenzaprine [Flexeril] 10 mg PO BID PRN #30 tablet 03/12/19 [Rx] Docusate Sodium [Colace] 100 mg PO BID cap 03/12/19 [Rx] Famotidine [Pepcid] 20 mg PO Q12H tablet 03/12/19 [Rx] Rivaroxaban [Xarelto] 10 mg PO DAILY #35 tablet 03/12/19 [Rx] Sennosides [Senna] 8.6 mg PO BID PRN tablet 03/12/19 [Rx] Patient Handouts: Total Hip Replacement, [id number] Referrals: Makenna Ceballos PA-C [Physician Computer Security Coordinator] - 03/20/19 9:00 am (Please follow-up with Makenna Ceballos on March 20 at 9:00 and March 27 at 9:00.) - Discharge Summary/Plan Comment DC Time >30 min.: No - Patient Data Vitals - Most Recent: Last Vital Signs Temp 98.8 F 03/13/19 11:19 Pulse 54 L 03/13/19 11:19 Resp 18 03/13/19 11:19 BP 98/54 L 03/13/19 11:19 Pulse Ox 94 L 03/13/19 11:19 Weight - Most Recent: 206 lb 4 oz Lab Results - Last 24 hrs: Laboratory Results - last 24 hr 03/13/19 Range/Units 05:40 Hemoglobin A1c 5.90 (4.50-6.20) % Med Orders - Current: Current Medications Discontinued Medications Acetaminophen (Tylenol) 975 mg PO NOW [facility] Stop: 03/12/19 13:00 Last Admin: 03/12/19 09:24 Dose: 975 mg Albuterol (Proventil Neb Soln) 2.5 mg NEB ONETIME PRN PRN Reason: asthma Stop: 03/12/19 18:00 Albuterol (Proventil Hfa) 0 gm INH Q4H PRN PRN Reason: Shortness of Breath Bisacodyl (Dulcolax) 5 mg PO DAILY PRN PRN Reason: Constipation Bupivacaine HCl (Marcaine 0.25%) Confirm Administered Dose 30 ml .ROUTE .STK- MED ONE Stop: 03/12/19 11:31 Last Admin: 03/12/19 14:03 Dose: 30 ml Cefazolin Sodium (Ancef) Confirm Administered Dose 1 gm .ROUTE .STK-MED ONE Stop: 03/12/19 09:29 Cefazolin Sodium (Ancef) Confirm Administered Dose 1 gm .ROUTE .STK-MED ONE Stop: 03/12/19 09:29 Cefazolin Sodium (Ancef) Confirm Administered Dose 2 gm .ROUTE .STK-MED ONE Stop: 03/12/19 11:31 Last Admin: 03/12/19 13:59 Dose: 2 gm Cholecalciferol (Vitamin D3) 1,000 units PO DAILY [facility] Last Admin: 03/13/19 08:30 Dose: 1,000 units Morphine Sulfate 8 mg/Epinephrine HCl 0.3 mg/Cefuroxime Sodium 750 mg/Sodium Chloride 28.9 ml 0 mg .XX ONETIME ONE Stop: 03/12/19 11:01 Last Admin: 03/12/19 17:19 Dose: Not Given Cyclobenzaprine HCl (Flexeril) 10 mg PO TID PRN PRN Reason: Spasms Last Admin: 03/13/19 13:16 Dose: 10 mg Docusate Sodium (Colace) 100 mg PO BID [facility] Last Admin: 03/13/19 08:31 Dose: 100 mg Ephedrine Sulfate (Ephedrine In Ns) Confirm Administered Dose 25 mg .ROUTE .STK- MED ONE Stop: 03/12/19 13:10 Famotidine (Pepcid) 20 mg PO Q12H [facility] Last Admin: 03/13/19 08:30 Dose: 20 mg Fentanyl (Sublimaze) Confirm Administered Dose 100 mcg .ROUTE .STK-MED ONE Stop: 03/12/19 09:27 Lactated Ringer's (Ringers, Lactated) 1,000 mls @ 125 mls/hr IV ASDIRECTED [facility] Stop: 03/12/19 23:00 Last Admin: 03/12/19 09:19 Dose: 125 mls/hr Cefazolin Sodium/Dextrose 2 gm (/ Premix) 50 mls @ 100 mls/hr IV Q8H [facility] Stop: 03/13/19 09:59 Last Admin: 03/13/19 08:34 Dose: 100 mls/hr Lactated Ringer's (Ringers, Lactated) Confirm Administered Dose 1,000 mls @ as directed .ROUTE .STK-MED ONE Stop: 03/12/19 14:04 Iodine (Iodine 2% Mild Tincture) Confirm Administered Dose 30 ml .ROUTE .STK- MED ONE Stop: 03/12/19 11:31 Lidocaine/Sodium Bicarbonate (Buffered Lidocaine 1% In Ns 8.4%) 0.25 ml IDERM ONETIME PRN PRN Reason: Prior to IV Start Stop: 03/12/19 18:00 Lisinopril (Prinivil) 5 mg PO DAILY [facility] Last Admin: 03/13/19 08:30 Dose: Not Given Magnesium Hydroxide (Milk Of Magnesia) 30 ml PO BID PRN PRN Reason: Constipation Midazolam HCl (Versed 1 Mg/Ml) Confirm Administered Dose 2 mg .ROUTE .STK-MED ONE Stop: 03/12/19 09:27 Midazolam HCl (Versed 1 Mg/Ml) Confirm Administered Dose 2 mg .ROUTE .STK-MED ONE Stop: 03/12/19 11:22 Midazolam HCl (Versed 1 Mg/Ml) Confirm Administered Dose 2 mg .ROUTE .STK-MED ONE Stop: 03/12/19 12:59 Midazolam HCl (Versed 1 Mg/Ml) Confirm Administered Dose 2 mg .ROUTE .STK-MED ONE Stop: 03/12/19 14:25 Miscellaneous Information (Remove Patch) 0 ea TRDERM ONETIME ONE Stop: 03/15/19 10:01 Morphine Sulfate (Morphine) 2 mg IVPUSH Q2H PRN PRN Reason: Breakthrough Pain Morphine Sulfate (Duramorph Pf) Confirm Administered Dose 1 mg .ROUTE .STK-MED ONE Stop: 03/12/19 09:28 Naloxone HCl (Narcan) 0.1 mg IVPUSH Q5M PRN PRN Reason: Oversedation Ondansetron HCl (Zofran) 4 mg IVPUSH Q6H PRN PRN Reason: Nausea/Vomiting Ondansetron HCl (Zofran) Confirm Administered Dose 4 mg .ROUTE .STK-MED ONE Stop: 03/12/19 09:27 Oxycodone HCl (Oxycontin) 10 mg PO ONETIME [facility] Stop: 03/12/19 13:00 Last Admin: 03/12/19 09:23 Dose: 10 mg Oxycodone/Acetaminophen (Percocet 325-5 Mg) 1 - 2 tab PO Q4H PRN PRN Reason: Pain Last Admin: 03/13/19 10:31 Dose: 2 tab Phenylephrine HCl (Price-Synephrine) Confirm Administered Dose 10 mg .ROUTE .STK- MED ONE Stop: 03/12/19 09:28 Pregabalin (Lyrica) 50 mg PO ONETIME [facility] Stop: 03/12/19 13:00 Last Admin: 03/12/19 09:23 Dose: 50 mg Propofol (Diprivan 20 Ml) Confirm Administered Dose 200 mg .ROUTE .STK-MED ONE Stop: 03/12/19 09:27 Rivaroxaban (Xarelto) 10 mg PO DAILY [facility] Last Admin: 03/13/19 08:30 Dose: 10 mg Scopolamine (Transderm-Scop) 1.5 mg TOP ONETIME [facility] Stop: 03/12/19 12:00 Last Admin: 03/12/19 09:50 Dose: 1.5 mg Senna (Senna) 8.6 mg PO BID PRN PRN Reason: Constipation Sodium Chloride (Saline Flush) 10 ml FLUSH ASDIRECTED PRN PRN Reason: Keep Vein Open Stop: 03/12/19 18:00 Tranexamic Acid (Cyklokapron) Confirm Administered Dose 1,000 mg .ROUTE .STK- MED ONE Stop: 03/12/19 11:31 Last Admin: 03/12/19 14:04 Dose: 1,000 mg Vancomycin HCl (Vancomycin) Confirm Administered Dose 1 gm .ROUTE .STK-MED ONE Stop: 03/12/19 11:31 Last Admin: 03/12/19 14:05 Dose: 1 gm
--- NOTE | 2019-03-15 11:02 | PCM.OPNOTE ---
- General Post-Op/Procedure Note Date of Surgery/Procedure: 03/12/19 Operative Procedure(s): right total hip arthroplasty Pre Op Diagnosis: right hip osteoarthrosis Post-Op Diagnosis: Same Anesthesia Technique: Local, MAC, Spinal Primary Surgeon: Sulaiman Chen Anesthesia Provider: Colby Shi [employer]: Makenna Ceballos [employer]: Jessi Kauffman EBMono in mLs: 325 Complications: None Condition: Good Free Text/Narrative:: 52 cup 3 stem 36+2.5
--- NOTE | 2019-03-15 11:45 | OR ---
DATE OF OPERATION: 03/12/2019 SURGEON: Sulaiman Chen MD OPERATION PERFORMED: Right total hip arthroplasty. PREOPERATIVE DIAGNOSIS: Right hip osteoarthrosis. POSTOPERATIVE DIAGNOSIS: Right hip osteoarthrosis. ANESTHESIA: Local MAC with spinal. ANESTHESIA PROVIDER: Colby Shi CRNA. COOKY PACKER: Makenna Ceballos PA-C, and Jessi Kauffman LPN. ESTIMATED BLOOD LOSS: 325 mL. COMPLICATIONS: None. CONDITION: Stable. IMPLANTS: 1. Sylvester size 52 Tritanium II cluster hole acetabular cup. 2. Jaime size 3 Accolade II stem. 3. Jaime size 36 +2.5 mm Biolox femoral head. DESCRIPTION OF PROCEDURE: The patient was identified in the preoperative holding area. Proper site was marked and identified by the surgeon. The patient was taken back to the operating room, where after adequate anesthesia, the patient was placed in the left lateral decubitus position. Axillary roll was placed. Bony prominences were well padded. Pegs were then placed and well padded. The patient's gluteal fold was parallel to the floor. At this time, the right hip was then sterilely prepped and draped in the usual sterile fashion. OR time-out was performed. The patient received 2 g IV Ancef. At this time, standard incision was made centered over the greater trochanter. This was taken down to the IT band and gluteal fascia, which was incised along the incisional length. Charnley retractor was then placed. Short external rotators were identified and takedown of the short external rotators was done from the level of the piriformis down to the lesser trochanter. At this time, the hip was dislocated. A neck cut was completed. At this time, attention was turned to the acetabulum. Anterior- posterior retractors were placed. The pulvinar was removed as well as any remaining labrum. Starting with a 44 reamer, I was able to ream up to a 52 for a 52 mm cup. At this time, the cup was impacted in place in roughly 45 degrees of abduction and 20 to 30 degrees of anteversion. The 36 mm flat liner was then impacted into place. Attention was turned to the femur. Starting with a box chisel out laterally, starter awl was placed down the canal. With the 0 broach, I was able to broach it up to a size 3, which was found to be rotationally and vertically stable. At this time, the patient was noted to be just a hair short on leg length with the +0, so we trialed +22.5, which was very stable throughout range of motion. The patient got into 90 degrees of internal rotation and it was still stable. We used the bone hook to dislocate it and had adequate voodoo of leg lengths. At this time, the size 3 Accolade stem was impacted in place along with 36 +2.5 mm Biolox femoral head. The hip was then relocated and 1 L of dilute Betadine solution was then irrigated through the hip along with 3 L of pulse lavage irrigation with Ancef. Topical tranexamic acid as well as vancomycin powder was placed. Periarticular injection was completed. A #2 barbed suture was used for closure of the IT band and gluteal fascia, 2-0 Vicryl was used subcutaneously, and Prineo was used for the skin. The patient was placed in a sterile soft dressing and sent to the PACU in stable condition. CHRISTIANO /[id number]
== END 2019-03-13 14:05 | disposition home or self-care (01) | DRG 470 ==
LOC: JD.MS 08:42
PROVIDERS: ADMIT Orthopaedic Surgery; ATTEND Orthopaedic Surgery
PROC: 0SR904Z Replacement of Right Hip Joint with Ceramic on Polyethylene Synthetic Substitute, Open Approach (ICD-10-PCS; principal; 2019-03-12)
DX: M16.11 Unilateral primary osteoarthritis, right hip (principal); M19.90 Unspecified osteoarthritis, unspecified site; E11.9 Type 2 diabetes mellitus without complications; I10 Essential (primary) hypertension; K21.9 Gastro-esophageal reflux disease without esophagitis; G47.33 Obstructive sleep apnea (adult) (pediatric); F32.9 Major depressive disorder, single episode, unspecified; E78.5 Hyperlipidemia, unspecified; J45.909 Unspecified asthma, uncomplicated; E55.9 Vitamin D deficiency, unspecified; G60.9 Hereditary and idiopathic neuropathy, unspecified; E78.00 Pure hypercholesterolemia, unspecified; K44.9 Diaphragmatic hernia without obstruction or gangrene; K29.70 Gastritis, unspecified, without bleeding; Z90.5 Acquired absence of kidney; Z90.49 Acquired absence of other specified parts of digestive tract; Z88.5 Allergy status to narcotic agent; Z88.8 Allergy status to other drugs, medicaments and biological substances; Z88.6 Allergy status to analgesic agent; Z88.1 Allergy status to other antibiotic agents; Z79.899 Other long term (current) drug therapy; Z91.041 Radiographic dye allergy status; Z86.010 Personal history of colon polyps; Z85.528 Personal history of other malignant neoplasm of kidney; Z79.82 Long term (current) use of aspirin
CPT/HCPCS: 01214; 36415; 73501-26-RT; 73501-RT; 80053; 82962; 83036; 83735; 84100; 85027; 86850; 86900; 86901; 87641; 94640; 94762; 97110-GP; 97116-GP; 97161-GP; 97165-GO; 97535-GO; A9270-GY; J0171; J0690; J0697; J2250; J2270; J2274; J2370; J2405; J2704; J3010; J3370; J3490; J7050; J7120

== ENCOUNTER → 2023-02-22 | Day surgery (SDC) | payer MEDICARE, OTHER ==
[~2023-02-22] MED LIST changes: +Acetaminophen 325 MG Tab PO SCH; -Albuterol 0.083% 2.5 MG/3 ML Neb Soln NEB PRN; +Lidocaine 1% 10 ML MDV ONE; +Lidocaine 1% 2 ML ONE; +Midazolam 1 MG/ML 2 ML SDV ONE; +Ondansetron 4 MG/2 ML SDV IVPUSH PRN; +Propofol 200 MG/20 ML SDV ONE; +Sodium Chloride 0.9% 10 ML Syringe FLUSH SCH; +fentaNYL 100 MCG/2 ML SDV IVPUSH PRN; +fentaNYL 100 MCG/2 ML SDV ONE
[2023-02-22 10:56] VITALS: BP 116/68; PULSE 72
== END | disposition home or self-care (01) ==
LOC: JD.SDS 07:12
PROVIDERS: ATTEND Obstetrics & Gynecology
DX: N93.8 Other specified abnormal uterine and vaginal bleeding (principal); N39.0 Urinary tract infection, site not specified; N85.8 Other specified noninflammatory disorders of uterus; I10 Essential (primary) hypertension; E78.5 Hyperlipidemia, unspecified; D50.9 Iron deficiency anemia, unspecified; G47.00 Insomnia, unspecified; E79.0 Hyperuricemia without signs of inflammatory arthritis and tophaceous disease; J45.909 Unspecified asthma, uncomplicated; F32.A Depression, unspecified; K21.9 Gastro-esophageal reflux disease without esophagitis; E55.9 Vitamin D deficiency, unspecified; Z90.49 Acquired absence of other specified parts of digestive tract; Z86.010 Personal history of colon polyps; Z91.041 Radiographic dye allergy status; Z87.19 Personal history of other diseases of the digestive system; Z79.899 Other long term (current) drug therapy; Z88.5 Allergy status to narcotic agent; Z88.1 Allergy status to other antibiotic agents; Z88.8 Allergy status to other drugs, medicaments and biological substances
CPT/HCPCS: 58999; A9270; J2704; J3010; J7120; J2250; J3490

== ENCOUNTER 2024-06-05 10:11 | Day surgery (SDC) | payer MEDICARE, OTHER ==
[~2024-06-05 10:11] MED LIST changes: -Acetaminophen 325 MG Tab PO SCH; +EPINEPHrine 1 MG/ML SDV ONE; -Lactated Ringers 1,000 ML IV SCH; -Lidocaine 1% 10 ML MDV ONE; -Lidocaine 1% 2 ML ONE; -Lidocaine 1%/Sod Bicarbonate in NS 8.4% 1 ML Syringe IDERM PRN; -Midazolam 1 MG/ML 2 ML SDV ONE; -Ondansetron 4 MG/2 ML SDV IVPUSH PRN; -Propofol 200 MG/20 ML SDV ONE; -fentaNYL 100 MCG/2 ML SDV IVPUSH PRN; -fentaNYL 100 MCG/2 ML SDV ONE
[2024-06-05] MEDS: Lactated Ringers 1,000 ML IV SCH (11:00)
[2024-06-05] MEDS ORDERED: Midazolam 1 MG/ML 2 ML SDV ONE (11:11)
[2024-06-05] MEDS ORDERED: fentaNYL 100 MCG/2 ML SDV ONE (11:11)
[2024-06-05] MEDS ORDERED: Propofol 200 MG/20 ML SDV ONE (11:12)
[2024-06-05] MEDS ORDERED: Lidocaine 1% 50 ML MDV ONE (11:57)
[2024-06-05] MEDS ORDERED: Ondansetron 4 MG/2 ML SDV IVPUSH PRN (12:10)
[2024-06-05] MEDS ORDERED: fentaNYL 100 MCG/2 ML SDV IVPUSH PRN (12:10)
[2024-06-05] MEDS: HYDROmorphone 0.5 MG/0.5 ML Syringe IVPUSH PRN (13:14)
[2024-06-05 15:23] VITALS: BP 107/59; PULSE 55
== END 2024-06-05 15:15 | disposition home or self-care (01) ==
LOC: JD.SDS 10:11
PROVIDERS: ATTEND Obstetrics & Gynecology
DX: N84.0 Polyp of corpus uteri (principal); R93.89 Abnormal findings on diagnostic imaging of other specified body structures; K55.1 Chronic vascular disorders of intestine; J45.909 Unspecified asthma, uncomplicated; E66.9 Obesity, unspecified; K21.9 Gastro-esophageal reflux disease without esophagitis; E78.00 Pure hypercholesterolemia, unspecified; I10 Essential (primary) hypertension; Z79.899 Other long term (current) drug therapy; Z79.2 Long term (current) use of antibiotics; Z88.1 Allergy status to other antibiotic agents; Z88.5 Allergy status to narcotic agent; Z91.041 Radiographic dye allergy status; Z88.8 Allergy status to other drugs, medicaments and biological substances; Z68.41 Body mass index [BMI] 40.0-44.9, adult
CPT/HCPCS: 58558; 82947; J1170; J2001; J2250; J2704; J3010; J7120; 00940; 99100; J0171

== ENCOUNTER 2024-08-15 10:18 | Day surgery (SDC) | payer MEDICARE, OTHER ==
[~2024-08-15 10:18] MED LIST changes: -EPINEPHrine 1 MG/ML SDV ONE; +HYDROmorphone 0.5 MG/0.5 ML Syringe IVPUSH PRN; +Ondansetron 4 MG/2 ML SDV IVPUSH PRN; +dexmedeTOMIDine HCl 200 MCG/2 ML SDV ONE; +fentaNYL 100 MCG/2 ML SDV IVPUSH PRN
[2024-08-15] MEDS: Lactated Ringers 1,000 ML IV SCH (10:45)
[2024-08-15] MEDS ORDERED: Lactated Ringers 1,000 ML IV ONE (11:45)
[2024-08-15] MEDS ORDERED: Propofol 200 MG/20 ML SDV ONE ×4 (12:02)
[2024-08-15] MEDS ORDERED: ePHEDrine 50 MG/ML SDV ONE (12:22)
[2024-08-15 14:59] VITALS: BP 152/68; PULSE 64
== END 2024-08-15 14:47 | disposition home or self-care (01) ==
LOC: JD.SDS 10:18
PROVIDERS: ATTEND Surgery
DX: D12.3 Benign neoplasm of transverse colon (principal); K29.50 Unspecified chronic gastritis without bleeding; K21.00 Gastro-esophageal reflux disease with esophagitis, without bleeding; K63.5 Polyp of colon; K62.5 Hemorrhage of anus and rectum; K57.31 Diverticulosis of large intestine without perforation or abscess with bleeding; K64.8 Other hemorrhoids; K44.9 Diaphragmatic hernia without obstruction or gangrene; K63.89 Other specified diseases of intestine; K92.1 Melena; K21.9 Gastro-esophageal reflux disease without esophagitis; E78.00 Pure hypercholesterolemia, unspecified; E66.01 Morbid (severe) obesity due to excess calories; I12.9 Hypertensive chronic kidney disease with stage 1 through stage 4 chronic kidney disease, or unspecified chronic kidney disease; N18.32 Chronic kidney disease, stage 3b; Z79.899 Other long term (current) drug therapy; Z79.2 Long term (current) use of antibiotics; Z88.5 Allergy status to narcotic agent; Z88.1 Allergy status to other antibiotic agents; Z88.8 Allergy status to other drugs, medicaments and biological substances; Z68.41 Body mass index [BMI] 40.0-44.9, adult
CPT/HCPCS: 43239; 45380; J2704; J7120; 00813; 99100; J3490